=== PATIENT | male | born 1965 | race Caucasian/White ===

== ENCOUNTER 2022-08-14 08:57 | Observation (INO) | payer MEDICARE, MEDICAID ==
[~2022-08-14] VITALS: Ht 180.3 cm; Wt 115.3 kg
[2022-08-14] VITALS (14 sets, daily range): BP systolic 90–132; BP diastolic 54–95
[~2022-08-14 08:57] MED LIST: ALBU18HF2 INH; BUDE10.2 INH; BUPIVAcaine/PF 2.5 mg/ml (0.25%) 30ml vial ONE; CETI10CA11 PO; DOCUMENT DATE & TIME OF BETA-BLOCKER PO ONE; GABA800T11 PO; HYDR-3973 PO; LIDOcaine 1% 30ml preserv. free vial ONE; LISI20TA28 PO; METO-384 PO; NAPR-996 PO; RANI-366 PO; SPIIN INH; TIZA-189 PO; clindamycin-Cleocin 900mg/D5W 50 ML IV ONE; famotidine 20mg tablet PO ONE; ringers solution, lacted 1,000 ML IV SCH
[2022-08-14] MEDS ORDERED: BUPIVAcaine/PF 2.5 mg/ml (0.25%) 30ml vial ONE (10:25)
[2022-08-14] MEDS ORDERED: BUPIVACAINE liposomal/PF 13.3 MG/ML vial IM ONE (10:25)
[2022-08-14] MEDS ORDERED: sevoflurane 250ml liquid IH ONE (10:43)
[2022-08-14 10:52] LABS: BASOPHILS # (AUTO) 0.1 X10'3 (0-0.2); BASOPHILS % (AUTO) 0.8 % (0-1); EOSINOPHILS # (AUTO) 0.5 X10'3 (0-0.9); EOSINOPHILS % (AUTO) 5.6 % (0-6); LYMPHOCYTES # (AUTO) 2.1 X10'3 (1.1-4.8); LYMPHOCYTES % (AUTO) 21.7 % (21-51); MEAN CORPUSCULAR HEMOGLOBIN 29.8 PG (27.0-31.0); MEAN CORPUSCULAR HGB CONC 33.9 g/dL (33.0-36.5); MEAN CORPUSCULAR VOLUME 87.7 FL (78-98); MEAN PLATELET VOLUME 8.8 FL (7.4-10.4); MONOCYTES % (AUTO) 10.8 % (2-12); NEUTROPHILS # (AUTO) 5.9 X10'3 (1.8-7.7); NEUTROPHILS % (AUTO) 61.1 % (42-75); PRE OP HEMATOCRIT 43.1 % (42.0-52.0); PRE OP HEMOGLOBIN 14.6 g/dL (14.0-17.9); PRE OP PLATELET COUNT 184 X10'3 (140-440); RED BLOOD COUNT 4.92 X10'6 (4.70-6.10); RED CELL DISTRIBUTION WIDTH 13.5 % (11.5-14.5)
[2022-08-14] MEDS ORDERED: midazolam 1 mg/ML 2ml injection ONE (10:54)
[2022-08-14] MEDS ORDERED: fentaNYL /PF 50mcg/ml 5ml ampule ONE (10:54)
[2022-08-14 11:10] LABS: ALKALINE PHOSPHATASE 60 IU/L (46-116); BLOOD UREA NITROGEN 14 MG/DL (7-18); BUN/CREATININE RATIO 18.2 (5.4-32.0); CHLORIDE 98 MMOL/L (99-107); CREATININE 0.77 MG/DL (0.60-1.10); PRE OP ALT 59 U/L (30-65); PRE OP ANION GAP 8 (8-16); PRE OP AST 30 U/L (10-37); PRE OP BILIRUB, TOTAL 0.4 MG/DL (0.0-1.0); PRE OP GLUCOSE 123 MG/DL (70-104); PRE OP SODIUM 136 MMOL/L (135-145); TOTAL CARBON DIOXIDE 29.9 MMOL/L (24-32); eGFR > 90 ML/MIN
[2022-08-14 11:11] LABS: PRE OP POTASSIUM 4.7 MMOL/L (3.4-5.1)
[2022-08-14 11:12] LABS: ALBUMIN 3.9 G/DL (3.4-5.0); ALBUMIN/GLOBULIN RATIO 1.3 (1.1-1.5)
[2022-08-14] MEDS ORDERED: propofol inj 20 ML IV ONE (11:12)
[2022-08-14] MEDS ORDERED: ondansetron/PF 4mg/2ml inj ONE (11:12)
[2022-08-14] MEDS ORDERED: dexamethasone sod phosphate 4mg/ml inj. ONE (11:12)
[2022-08-14] MEDS ORDERED: LIDOcaine 2% (20mg/ml) 5ml vial ONE (11:12)
[2022-08-14] MEDS ORDERED: ePHEDrine 50MG/ML INJ. ONE (11:15)
[2022-08-14] MEDS ORDERED: 0.9 % SODIUM CHLORIDE 10 ML VIAL ONE ×2 (11:15→11:57)
[2022-08-14] MEDS ORDERED: ketorolac trometh. 30mg/ml inj. IV ONE (11:30)
[2022-08-14] MEDS ORDERED: meperidine/PF 25mg/ml syringe IV PRN (11:30)
[2022-08-14] MEDS ORDERED: acetaminophen 1,000mg/100ml IV 100 ML IV PRN (11:30)
[2022-08-14] MEDS ORDERED: labetalol 20mg/4ml (5mg/ml) syringe IV PRN (11:30)
[2022-08-14] MEDS ORDERED: ringers solution, lacted 1,000 ML IV SCH (11:30)
[2022-08-14] MEDS ORDERED: morphine 2 MG/ML inj. syringe IV PRN (11:30)
[2022-08-14] MEDS ORDERED: ondansetron/PF 4mg/2ml inj IV PRN ×2 (11:30→13:20)
[2022-08-14] MEDS ORDERED: HYDROmorphone/PF 0.2 MG/ML SYRINGE IV PRN ×2 (11:30)
[2022-08-14] MEDS ORDERED: hydrALAZINE 20mg/ml inj. IV PRN (11:30)
[2022-08-14] MEDS ORDERED: morphine 4 MG/ML inj SYRINge IV PRN (11:30)
[2022-08-14] MEDS ORDERED: proCHLORperazine 10 MG/2 ml inj IV PRN (11:30)
[2022-08-14] MEDS ORDERED: phenylephrine 10mg/ml inj. ONE (11:57)
[2022-08-14] MEDS ORDERED: neostigmine methylsulfate 1 MG/ML 10ml vial ONE (11:57)
[2022-08-14] MEDS ORDERED: glycopyrrolate 0.2mg/ml inj ONE (11:57)
[2022-08-14] MEDS ORDERED: rocuronium 10mg/ml inj IV ONE (11:57)
[2022-08-14] MEDS ORDERED: sugammadex 200mg/2ml injection IV ONE (12:18)
[2022-08-14] MEDS ORDERED: flumazenil 0.1 mg/ml inj. IV ONE (12:30)
[2022-08-14] MEDS ORDERED: naloxone 0.4 mg/ml inj ONE (12:34)
--- NOTE | 2022-08-14 12:50 | NUR ---
Received from OR via , accompanied by Anesthesiologist and report given by Anesthesiolgist. PATIENT SEDATED DIFFICULT TO WAKE UP, NO S/S OF PAIN, V/S WNL, SCD ON , PIV 20G LUE, LAPS SITES CLOSED CDI TO ABDOMEN W/ ABD MINDER ON. .
--- NOTE | 2022-08-14 13:12 | NUR ---
PATIENT AWAKE NOW ORIENTED X3
[2022-08-14] MEDS ORDERED: oxyCODONE/APAP 10/325mg tablet PO PRN ×2 (13:20)
[2022-08-14] MEDS: potassium CL 20mEq in D5-1/2NS 1,000 ML IV SCH ×2 (13:20→21:20)
[2022-08-14] MEDS ORDERED: naloxone 0.4 mg/ml inj IV PRN (13:20)
[2022-08-14] MEDS ORDERED: albuterol 2.5 MG/3 ML nebule NEB PRN (13:25)
[2022-08-14] MEDS ORDERED: tizanidine 4mg tablet PO PRN (13:35)
--- NOTE | 2022-08-14 14:20 | NUR ---
PATIENT TAKEN TO 3024A WITH ALL BELONGINGS AND REPORT GIVEN TO RN WHO HAS TAKEN OVER PATIENT CARE. ABD BINDER AND DRESSING TO ABDOMEN CDI. 20G CONSUELO INIGUEZ, SCD ON.
[2022-08-14] MEDS: ipratropium 0.5 MG/2.5ML nebule IH SCH ×2 (15:05→20:31)
--- NOTE | 2022-08-14 18:20 | NUR ---
Patient in room PCU 3024. I have received report from NESSA Cordero and had the opportunity to ask questions and assume patient care. Pt resting in bed at time of handoff.
[2022-08-14] MEDS: metoprolol succinate 25mg (24-HOUR) SR. Tablet PO SCH (20:00)
[2022-08-14] MEDS: heparin, porcine 5000 units/ml vial SQ SCH (20:13)
[2022-08-14] MEDS: gabapentin 400mg capsule PO SCH (20:18)
[2022-08-14] MEDS: gabapentin 300mg capsule PO SCH (20:20)
[2022-08-14] MEDS ORDERED: famotidine 20mg tablet PO SCH (21:00)
[2022-08-15 02:00] VITALS: BP 109/61
[2022-08-15] MEDS: ipratropium 0.5 MG/2.5ML nebule IH SCH ×2 (02:33→07:34)
[2022-08-15] MEDS: potassium CL 20mEq in D5-1/2NS 1,000 ML IV SCH (05:20)
--- NOTE | 2022-08-15 05:59 | NUR ---
Pt easily able to wake up for conversations but then falls asleep quickly. Trial of pt on 2L/NC got desats in 80's. Pt returned to 4L/NC with oxygen sats in mid to high 90's. Pt got pain pill this am and still able to maintain oxygen sats. Pt is more awake this am.
--- NOTE | 2022-08-15 06:50 | NUR ---
Problems reprioritized. Patient report given, questions answered & plan of care reviewed with NESSA Goyal. Pt in no acute distress at time of handoff at bedside.
[2022-08-15 07:15] VITALS: BP 114/73
[2022-08-15] MEDS: heparin, porcine 5000 units/ml vial SQ SCH (07:20)
[2022-08-15] MEDS: gabapentin 300mg capsule PO SCH (07:20)
[2022-08-15 07:21] VITALS: BP_SYST 114
[2022-08-15] MEDS: gabapentin 400mg capsule PO SCH (07:21)
[2022-08-15] MEDS: metoprolol succinate 25mg (24-HOUR) SR. Tablet PO SCH (07:21)
[2022-08-15] MEDS ORDERED: cetirizine 10mg tablet PO SCH (08:00)
[2022-08-15] MEDS ORDERED: lisinopril 20mg tablet PO SCH (08:00)
[2022-08-15] MEDS ORDERED: OXYC1TAB17 PO (09:19)
--- NOTE | 2022-08-15 10:12 | NUR ---
Patient stable and appropriate for discharge home. IV removed, monitor tech removed. All belongings taken from room. New RX e-scripted to pharmacy. All discharge instructions and education given and reviewed with patient, all questions answered.
== END 2022-08-15 10:00 | disposition home or self-care (01) ==
LOC: PAS 08:57 → PAS IN 13:19 → PCU 3S 14:20
PROVIDERS: ADMIT Surgery; ATTEND Surgery
DX: K42.0 Umbilical hernia with obstruction, without gangrene (principal); Z20.822 Contact with and (suspected) exposure to COVID-19; E66.9 Obesity, unspecified; J44.9 Chronic obstructive pulmonary disease, unspecified; G47.30 Sleep apnea, unspecified
CPT/HCPCS: 36415; 49653; 64488; 80053; 82948; 85025; 87811; 93005; 94640; 94664; 94760; 96372; C1781; C9290; G0378; J1100; J1644; J2250; J2310; J2370; J2405; J2704; J2710; J3010; J3490; J7120; A4215; A4618